=== PATIENT | male | born 2005 | race Caucasian/White ===

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

== ENCOUNTER 2024-08-29 19:11 | Inpatient (IN) | payer OTHER ==
[2024-08-29] MEDS: VALPROATE SODIUM 500 MG/5 ML VIAL IVPB ONE (19:55)
[2024-08-29] MEDS ORDERED: LORazepam 4 MG/1 ML VIAL IVPUSH PRN (20:38)
[2024-08-29] MEDS: LACTATED RINGERS SOLUTION 1000 ML INFUS.BAG IV ONE (21:01)
[2024-08-29] MEDS ORDERED: ALBUTEROL SO4 0.083% IH SOL 2.5 MG/3 ML VIAL.NEB. NEB PRN (21:22)
[2024-08-29] MEDS: ALBUTEROL SO4 HFA INHALER IH SCH (21:30)
[2024-08-29] MEDS ORDERED: VALPROATE SODIUM INJECTION 500 MG in SODIUM CHLORIDE 100 ML IVPB SCH (22:00)
[2024-08-29] MEDS ORDERED: VALPROATE SODIUM 500 MG/5 ML VIAL IVPB SCH (22:00)
[2024-08-29] MEDS: LACTATED RINGERS SOLUTION 1,000 ML/1,000 ML INFUS.BAG IV SCH ×2 (22:24→23:43)
[2024-08-29 22:27] LABS: URINE APPEARANCE CLEAR; URINE BILIRUBIN NEGATIVE (NEGATIVE); URINE COLOR YELLOW; URINE GLUCOSE (UA) NEGATIVE (NEGATIVE); URINE KETONE NEGATIVE (NEGATIVE); URINE LEUK ESTERASE NEGATIVE (NEGATIVE); URINE NITRITE NEGATIVE (NEGATIVE); URINE PROTEIN NEGATIVE (NEGATIVE); URINE UROBILINOGEN 0.2 mg/dL (0.2-1.0)
[2024-08-29 22:37] LABS: URINE BARBITURATES NEGATIVE (NEGATIVE)
[2024-08-29 22:38] LABS: COCAINE, UR NEGATIVE (NEGATIVE); METHADONE, UR NEGATIVE (NEGATIVE); URINE BENZODIAZEPINES NEGATIVE (NEGATIVE)
[2024-08-29 23:04] LABS: OPIATES, URI NEGATIVE (NEGATIVE); PHENCYCLIDINE,URINE NEGATIVE (NEGATIVE); URINE AMPHETAMINES NEGATIVE (NEGATIVE)
[2024-08-30 01:02] VITALS: RESP 18; BMI 26.1
[2024-08-30 04:30] VITALS: BP 123/73; PULSE 110; TEMP 97.9
[2024-08-30] MEDS: VALPROATE SODIUM INJECTION 500 MG in SODIUM CHLORIDE 100 ML IVPB SCH (06:17)
[2024-08-30 08:31] LABS: MCHC 32.3 g/dl (32.3-36.5); MEAN CELL VOLUME 89.5 fl (79.0-92.2); MEAN PLT VOLUME 11.9 fl (9.4-12.4); RDW 14.1 % (12.0-15.6)
[2024-08-30 09:38] LABS: CO2 24.0 mmol/L (21-32); GLUCOSE,RANDOM 88.0 mg/dL (74-106)
[2024-08-30 09:41] LABS: CREATININE 0.9 mg/dL (0.55-1.3); SGPT/ALT 75.0 U/L (13-61)
[2024-08-30 09:42] LABS: SGOT/AST 31.0 U/L (15-37)
[2024-08-30 09:43] LABS: TOT PROT 7.2 g/dl (6.4-8.2)
[2024-08-30 09:44] LABS: ALK PHOS 83.0 U/L (45-117)
[2024-08-30] MEDS ORDERED: ENOXAPARIN NA (PORCINE) 40 MG/0.4 ML DISP.SYRIN SQ SCH (10:00)
== END 2024-08-30 14:00 | disposition home or self-care (01) | DRG 53 ==
LOC: JER 19:11 → JERBED 19:16 → OBSVTOIN 20:17 → J6S 08-30 00:28
PROVIDERS: ADMIT Internal Medicine; ATTEND Internal Medicine
DX: G40.909 Epilepsy, unspecified, not intractable, without status epilepticus (principal); F12.90 Cannabis use, unspecified, uncomplicated; J45.909 Unspecified asthma, uncomplicated; R61 Generalized hyperhidrosis
CPT/HCPCS: 36415; 70450-TC; 71045-TC-FY; 80053; 80164; 80307; 81003; 82962; 83735; 84100; 84146; 85025; 85027; 87637-QW; 93005; 93010; 99283-25; 99285-25; G0378